=== PATIENT | male | born 1940 ===

== ENCOUNTER → 2023-07-22 13:27 | Outpatient (CLI) | payer OTHER, SELFPAY ==
[2023-07-22] MEDS: Barium Sulfate 81% w/w for Oral Suspension 148 GM BTL PO (09:47)
[2023-07-22] MEDS: Barium Sulfate 40% W/V 240 ML BTL PO (09:48)
[2023-07-22] MEDS: Barium Sulfate Oral Paste 40% W/V 230 ML TUBE PO (09:49)
--- NOTE | 2023-07-22 09:49 | DI.RAD_ITS ---
Exam(s) RF MODIFIED SPEECH BA SWALLOW TECHNIQUE: Modified barium swallow was performed in conjunction with speech pathology. CONTRAST MATERIAL: Barium impregnated different textures administered by the speech pathologist. COMPARISON: No exams were available for comparison FINDINGS: See procedure report for details. IMPRESSION: Total fluoroscopy time 84 seconds RADIATION DOSE DELIVERED: hollie Arvizu=6.79 mGy
--- NOTE | 2023-07-22 10:06 | ST.MBS_ITS ---
Date of Service Date of service: 07/22/23 Time of Service: 10:07 Modified Barium Swallow Study Findings: Video fluoroscopic Swallowing Evaluation (VFSE) / Modified Barium Swallow Study (MBSS) Speech Language Pathology Report Patient referred for VFSE/MBSS from Dr. Chrissy Guzman for dysphagia re- assessment. HPI & Patient report of function: Patient is a 82 year old male with history of spinal cord injury in the setting of falls. He is s/p ACDF (anterior cervical discectomy and fusion) C3-C6 on 09/27/22. An MBS was initially completed in September 2022, which recommended NPO and consideration of alternate nutrition. He has had 3 additional MBS since: November 2022 (recommended continue strict NPO d/t aspiration with thin, mildly thick, and puree solids), December 2022 (improved, recommended continued NPO with initiation of L4 puree for pleasure) and most recently in February 2023 (recommended small amounts L4/L3 in supplementation to PEG. Silent aspiration was noted with L2). Currently, Ryder reports he is taking in some thin water and coffee and some soft solids, 2-3 times daily. He and his feel his swallowing is improved. His goal is to have his PEG removed. PMHx: anemia enterocolitis d/t clostridium difficule hyponatremia orthostatic hypotension pressure ulcer of sacral region quadriplegia solitary pulmonary nodule Previous Imaging: Previous MBS September 2022, November 2022, December 2022, February 2023. Film not available for review as completed at alternate facility. IMPRESSIONS:Ryder Coelho presents with at least moderate chronic pharyngeal sensorimotor dysphagia, with primary impairments of decreased hyolaryngeal movement anteriorly and decreased pharyngeal wall movement resulting in incomplete epiglottic deflection/incomplete laryngael vestibule closure. In addition, there is impaired laryngeal sensation/absent cough reflex. Collectively this results in consistent silent penetration during the swallow to the level of the vocal cords with at least transient aspiration with both thin and mildly thick liquids. There is not significant difference between thin /mildly thick liquids. Sensation is considered inconsistent - while Ryder is able to eject laryngeal vestibule reside with verbal prompt to throat clear/cough, the bolus is not spontaneously ejected with coating remaining in the laryngeal vestibule/at the level of the vocal cords after the swallow. There is no penetration/significant pharyngeal retention with puree solids. Overall, swallow safety is considered impaired. Patient appears to be at moderate risk for potential aspiration PNA and/or pulmonary compromise and low risk for malnutrition, low risk for dehydration.Diet modification is indicated. Swallow prognosis is fair given length of time since injury, age. Ryder's impairments in laryngeal vestibule closure, and primarily his impaired laryngeal sensation, put him at increased risk for developing aspiration-related illness with all consistencies. Considering that Ryder has returned to drinking thin liquids, and with him/his expressing desire to accept aspiration risks for return to PO for pleasure/remove PEG, the following is recommended. He would benefit from ongoing [facility] [employer] intervention targeting the following: b ehavioral modifications and education to mitigate risks for developing aspiration related illness (optize oral hygiene), instruction in safe swallowing strategies (diet modification, swallowing precautions), and instruction in pharyngeal strengthening exercises targeting hyolaryngeal movement and larygneal vestibule closure). Unfortunately he and his state they are moving south t his week (they are snowbirds) and are unable to attend a follow up [facility] [employer] session. [facility] [employer] agreed to contact patient/ via telephone to relay recommendations. Recommend ongoing [facility] [employer] [facility] services in [place] for carryover. Specialist referrals:?N/A - ongoing [facility] OR [employer] [facility] Services RECOMMENDATIONS: Diet Texture Recommendation:? *Recommend ongoing work with [facility] [employer] and/or sow farm manager to aid in gradual return to increased PO tolerance. Encourage monitoring for signs/symptoms of aspiration- related illness with increase in PO. IDDSI LEVEL 6-Soft & Bite-Sized Solids (AVOID MIXED CONSISTENCIES, DRY SOLIDS, PARTICULATE FOODS) LIQUIDS 0-Thin Liquids MEDICATION: Via PEG, or if oral: Whole with 4-Puree (applesauce/etc). Do not alter medications (e.g., cut)? without advice from your MD or pharmacist. Diet texture modification is per patient's preference; please adjust diet textures at patient's discretion & collaboration with care team. Risk Management Strategies:? Behavioral reflux precautions, including upright position during + 90 mins after meals. Small bites, approx [id number] Small sips, approx 10 mL Encourage avoidance of straws Throat clear w/ repeat swallow encouraged following every 1-2 bites/sips Control risk factors for aspiration pneumonia via (a) thorough oral hygiene & (b) maintaining physical mobility as tolerated PLAN: Therapy: Recommend subsequent outpatient session with [facility] [employer] to review results of today's exam and develop treatment plan as appropriate. Patient/ unable to schedule at this time, as relocating to [place]. POC created if he would like to return to [facility] OR [employer] [facility] Services when he returns to [place]. May consider the following: Oropharyngeal Exercises to target deficits noted in objective section above; Further Compensatory Strategy Training; Further Training/Education in Risk Management; Consideration of Training in RMST Program Goals: Patient will remain free from aspiration-related illness. Patient will verbalize/demonstrate comprehension of education provided re: maximizing swallow safety and reducing risk for development of aspiration related illness. Patient will demonstrate return demonstration of safe swallow strategies within the setting of a snack with min cueing across 2/2 visits. OBJECTIVE Videofluoroscopic Swallow Evaluation (VFSE/MBSS) was conducted in the lateral projection by Speech-Language Pathologist, in collaboration with Radiologist, to evaluate oropharyngeal swallow function. Anatomic view under fluoroscopy: WFL PO Barium Contrast Trials Oral barium water-soluble contrast was administered as follows: IDDSI Level 0 Varibar thin liquid (40% w/v) IDDSI Level 2 Varibar nectar thick/mildly thick liquid (40% w/v) IDDSI Level 4 Varibar pudding/pureed/extremely thick (40% w/v) Objective Findings: MBSImP Component Scores COMPONENT Score and Description 1. 0 Lip closure (0-4) Resulted in no labial escape 2. 0 Hold Position (0-3) Maintained a cohesive bolus between tongue to palatal seal 3. 0 Bolus Preparation (0-4) Resulted in timely and efficient chewing and mashing 4. 0 Bolus Transport (0-4) Was with brisk tongue motion 5. 1 Oral Residue (0-4) Was a trace, lining oral structures 6. 3 Swallow Initiation (0-4) Occurred when the bolus head was in the pyriform sinuses 7. 0 Soft Palate Elevation (0-4) Resulted in no bolus between soft palate and the pharyngeal wall 8. 2 Laryngeal Elevation (0-3) Was incomplete, with minimal superior movement of thyroid cartilage with minimal approximation of arytenoids to epiglottic pet iole 9. 1 Anterior Hyoid Motion (0-2) Demonstrated partial anterior movement 10. 2 Epiglottic Movement (0-2) Resulted in no inversion 11. 1 Laryngeal Closure (0-2) Was incomplete with narrow a column of air/contrast in laryngeal vestibule 12. 1 Pharyngeal Stripping Wave (0-2) Was present, but diminished 13. NA Pharyngeal Contraction (0-3) 14. 0 PES Opening (0-3) Was completely distended and complete duration with no obstruction of flow 15. 1 Tongue Base Retraction (0-4) Allowed a trace column of contrast or air between tongue base and pharyngeal wall 16. 1 Pharyngeal Residue (0-4) Showed a trace within or on pharyngeal structures 17. NA Esophageal Clearance (0-4) Results COMPONENT Score and Description 1. 3 Oral Score (0-18) 2. 7 Pharyngeal Score (0-29) 3. 0 Esophageal Score (0-4) Functional Oral Intake Scale COMPONENT Score and Description 1. 2 Pre-Study (1-7) Tube dependent with minimal/inconsistent oral intake 2. 2 Post-Study (1-7) Tube dependent with minimal/inconsistent oral intake Penetration-Aspiration Scale COMPONENT Score and Description 1. 6 Thin liquid (1-8) Contrast entered the airway, passed below the vocal folds, and was ejected into the larynx or out of the airway. 2. 6 [place] thick (1-8) Contrast entered the airway, passed below the vocal folds, and was ejected into the larynx or out of the airway. 3. NT Honey Thick (Product not available) 4. 1 Pudding thick (1-8) Contrast did not enter the airway 5. NT Cookie (1-8) Trialed Compensatory Strategies & Outcome: Maneuvers Successful (+) Unsuccessful (-) Postures Successful (+) Unsuccessful (-) 3 second Preparatory Set? Unsuccessful ? Chin Tuck Posture? ? Unsuccessful Cough? ? Posterior Head tilt? Reflexive? Cued? Successful ? ? ? Throat Clear? ? Head Tilt to? Reflexive? Left? Cued? Right? ? Saliva swallow? ? Head Turn/Rotate to? ? Supraglottic Swallow? Left? ? Super-supraglottic Swallow? Right? ? Bolus Modifications Successful (+) Unsuccessful (-) Delivery/Alternating Consistencies ? Follow with Liquid Wash ? Follow with Solid Bolus? Delivery/Via Straw? ? Reduced Volume? ? Reduced Rate of Intake? ? Increased Viscosity? ? Other:?? ? Thank you for allowing us to take part in this patient's care. Please feel free to contact the [facility] Speech Language Pathology Department with any questions/concerns. Coding CPT Codes MOTION FLUOROSCOPY/SWALLOW - [id number] ([id number])
--- OUTSIDE RECORDS SUMMARY | 2023-07-22 13:36 | XMS_ITS | Continuity of Care Document ---
Author Name Unknown Address [address] [place] [address] Phone [facility] Address [address] [place] [address] Phone Care Team Providers Care Fire Extinguisher Mechanic Name Role Phone MD Chrissy Liu Primary Care Provider MADI Henderson Attending Provider Care Teams Patient Care Team Team Status: Active Member Role Status Dates Chrissy Liu MD Primary Care Provider Active Visit Care Team Team Status: Inactive Member Role Status Dates Chrissy Liu MD Primary Care Provider, Referring Pr ovider Active Palak Henderson DPM Attending Provider Active Chief Complaint and Reason for Visit Chief Complaint feet with impaired s ensation Allergies, Adverse Reactions, Alerts Allergen Type Severity Reaction Last Updated Verified Status baclofen Allergy Unknown July 03, 2023 10:54am Yes Active Social History Smoking Status Status Start Date End Date Date of Observa tion Unknown if ever smoked Oct2022 11:00am Observation Status Observation Response Date of Response alcohol intake never May 01, 2023 9:58am Additional Data Assigned Sex Male Problems Active Problems Medical Problem Onset Date Status Quadriplegia, C1-C4 incomplete A ctive Inactive/Resolved Problems Medical Problem Onset Date Status Pressure ulcer of sacral region Resolved Enterocolitis due to Clostridioides difficile Resolved Personal history of COVID-19 Res olved Cramp and spasm Resolved Hematuria Resolved Orthostatic hypotension Resolved Anemia Resolved Cough Resolved CKD (chronic kidney disease) Res olved Skin lesions Resolved Solitary pulmonary nodule Resolv ed Hypo-osmolality and hyponatremia Resolved S/P spinal surgery Resolved GERD (gastroesophageal reflux disease) Resolved Oropharyngeal dysphagia Resolved Nodule of left lung Resolved Protein calorie malnutrition Res olved Medications Medication Status Dose Units Route Directions Qty Days St art Date End Date Instructions Baclofen Active 10 MG TUBE Q8H May 01, 2023 12:00am Bisacodyl Active 10 MG PA daily May 01, 2023 12:00am Docusate Sodium Active 100 MG TUBE daily May 01, 2023 12:00am Doxazosin Active 1 MG TUBE daily May 01, 2023 12:00am Doxazosin Active 2 MG TUBE daily at bedtime May 01, 2023 12:00am Doxepin Active 1 APPLIC TOPICALL Y Q8H May 01, 2023 12:00am Ergocalcifero l (Vitamin D2) Active 1250 MCG TUBE Every Week May 01, 2023 12:00am Finasteride Active 5 MG TUBE daily Augus t 2022 12:00am Fluticasone Propionate (Allergy Relief (Fluticasone) ) 50 mcg/actuation spray,suspens ion Active 1 SPRAY NASALLY daily May 01, 2023 12:00am administer into each nostril Guaifenesin Active 100 MG PO 3 times per day May 01, 2023 12:00am Lactobacillus acidophilus (Acidophilus) Active 1 TAB PO 2 times per day May 01, 2023 12:00am May be given by G-Tube Lactulose Active 15 ML TUBE Q2D May 01, 2023 12:00am Lactulose Active 15 ML TUBE every othe r day May 01, 2023 12:00am Magnesium Hydroxide (Dulcolax (Magnesium Hydroxide)) 400 mg/5 mL suspension Active 30 ML TUBE daily May 01, 2023 12:00am Melatonin Active 6 MG PO daily at bedtime May 01, 2023 12:00am Miconazole Nitrate Active 1 APPLIC TOPICALL Y 2 times per day May 01, 2023 12:00am Multivitamin With Minerals Active 15 ML TUBE daily May 01, 2023 12:00am Nystatin Active 1 APPLIC TOPICALL Y 2 times per day May 01, 2023 12:00am Polyethylene Glycol 3350 Active 17 GM TUBE every other day May 01, 2023 12:00am Sennosides Active 5 ML TUBE Q2D May 01, 2023 12:00am Silver Sulfadiazine (Silvadene) 1 % cream Active 1 APPLIC TOPICALL Y 2 times per day May 01, 2023 12:00am apply a 1.5 mm thickness Trazodone Active 50 MG TUBE daily at bedtime May 01, 2023 12:00am Vital Signs Vital Reading Result Reference Range Collection Date/Time Height 70 [in_i] July 03 10:54am Body Temperature 97.8 [degF] 97.6-99.6 June 10:54am Heart Rate 76 /min 60-100 July 03 10:54am Respiratory rate 16 /min 12-18 June 10:54am Oxygen saturation by Pulse oximetry 95 % 92-100 July 03, 2023 10 :54am BP Systolic 112 mm[Hg] 90-130 July 03 10:54am BP Diastolic 68 mm[Hg] 70-80 July 03 10:54am Insurance Providers Guarantor CALOS LORA N Address [address] [address] Contact Info. Home Phone: Payer Policy Id Coverage Id Subscriber's Name Subscriber Id Effective Date Expiration Date [facility] [employer] [id number] CALOS ZAYAS [id number] Encounters Encounter Location(s) Arrival/Admit Date Discharge/Depart Date Provider(s) Departed Physician/Prov ider Office Visit [facility] [place] July 03, 2023 10:13am July 03, 2023 11:25am Palak Henderson DPM
== END ==
PROVIDERS: Visit Provider Physical Medicine & Rehabilitation
DX: R13.13 Dysphagia, pharyngeal phase (principal)
CPT/HCPCS: 92526; 92611; 74221